=== PATIENT | female | born 1955 | race Two or more races ===

== ENCOUNTER 2024-01-19 15:26 | Emergency (ER) | payer MEDICARE, BC ==
[2024-01-19 16:00] VITALS: TEMP 97.6
--- NOTE | 2024-01-19 16:07 | ERPHSYRPT ---
- History of Present Illness Time Seen by Provider: 01/19/24 16:04 Source: patient Exam Limitations: no limitations Patient Subjective Stated Complaint: C/O intermittent nose bleeds since 01/15/24. Patient states she had a nose bleed (left nare only) on Thursday, 03/01, then again on 01/17/24 and then again today at around 2pm. Indicates she had a nose bleed from both nares on 01/18/24. Denies pain or trauma. Does state she noticed her B/P being a bit elevated during the bleeding. Went to see her family MD today, Dr. Agus Rowland who advised her to come to the ER. Triage Nursing Assessment: Patient ambulated back to ER without difficulties. No active bleeding at this time. She is alert and oriented. Skin tone normal. Physician History: 68-year-old female presents to our ER as a referral from her primary care doctor for blood work. Patient has been experiencing intermittent nosebleeds for the past 3 days. Patient's physician wants patient to obtain blood work to assess coagulation profile. No active bleeding at this time. No trauma no fever no dizziness no headache. No chest pain or shortness of breath. Patient otherwise feels well. Patient voices no other complaints or concerns at this time. Portions of this note were created with voice recognition technology. There may be grammatical, spelling, punctuation or sound alike errors Timing/Duration: day(s) (3 days) Severity: moderate Modifying Factors: Improves With: nothing Associated Symptoms: denies symptoms Allergies/Adverse Reactions: codeine Allergy (Verified 01/19/24 15:49) Sulfa (Sulfonamide Antibiotics) Allergy (Verified 01/19/24 15:49) Home Medications: Aspirin EC 81 mg [Ecotrin 81 mg] 81 mg PO DAILY 01/19/24 [History] Carvedilol [Coreg ] 6.25 mg PO DAILY 01/19/24 [History] Hx Influenza Vaccination/Date Given: No Travel Risk - International Travel Have you traveled outside of the country in past 3 weeks: No - Emerging Infectious Disease Are you exhibiting symptoms associated with any current EIDs: No - Review of Systems Constitutional: No Symptoms, No Fever, No Chills Eyes: No Symptoms Ears, Nose, & Throat: No Symptoms Respiratory: No Symptoms, No Cough, No Dyspnea Cardiac: No Symptoms, No Chest Pain, No Edema, No Syncope Abdominal/Gastrointestinal: No Symptoms, No Abdominal Pain, No Nausea, No Vomiting, No Diarrhea Genitourinary Symptoms: No Symptoms, No Dysuria Musculoskeletal: No Symptoms, No Back Pain, No Neck Pain Skin: No Symptoms, No Rash Neurological: No Symptoms, No Dizziness, No Focal Weakness, No Sensory Changes Psychological: No Symptoms Endocrine: No Symptoms Hematologic/Lymphatic: No Symptoms Immunological/Allergic: No Symptoms All Other Systems: Reviewed and Negative - Past Medical History Pertinent Past Medical History: Yes Cardiac History: Hypertension - Past Surgical History Past Surgical History: No Other Surgical History: wisdom teeth removal - Social History Smoking Status: Never smoker Exposure to second hand smoke: Yes Drug Use: none - Social Determinants of Health Will the patient participate in the screening: Yes Do you worry about a steady place to live?: No Do you have any problems with any of the following?: No known problems In the past 12 months,have you had to go without utilities?: No Transportation Issues: No Has anyone in your support network made you feel unsafe?: No Have you or anyone in your house had to go without enough: No - Nursing Vital Signs Nursing Vital Signs: Initial Vital Signs Blood Pressure 181/77 01/19/24 15:35 O2 Sat by Pulse Oximetry 98 01/19/24 15:35 Pain Scale Pain Intensity 0 - Physical Exam General Appearance: no apparent distress, alert Eye Exam: PERRL/EOMI, eyes nml inspection Ears, Nose, Throat Exam: normal ENT inspection, TMs normal, pharynx normal, moist mucous membranes Neck Exam: normal inspection, non-tender, supple, full range of motion Respiratory Exam: normal breath sounds, lungs clear, No respiratory distress Cardiovascular Exam: regular rate/rhythm, normal heart sounds, normal peripheral pulses Gastrointestinal/Abdomen Exam: soft, normal bowel sounds, No tenderness, No mass Back Exam: normal inspection, normal range of motion, No CVA tenderness, No vertebral tenderness Extremity Exam: normal inspection, normal range of motion, pelvis stable Neurologic Exam: alert, oriented x 3, cooperative, normal mood/affect, sensation nml, No motor deficits Skin Exam: normal color, warm, dry, No rash Lymphatic Exam: No adenopathy SpO2 Interpretation: normal SpO2: 99 O2 Delivery: Room Air - Course Nursing assessment & vital signs reviewed: Yes Ordered Tests: Active Orders 24 hr Category Date Time Status CBC W DIFF Stat Lab 01/19/24 16:26 Completed CMP Stat Lab 01/19/24 16:26 Completed PROTIME WITH INR Stat Lab 01/19/24 16:26 Completed PTT Stat Lab 01/19/24 16:26 Completed Lab/Rad Data: Laboratory Result Diagrams 01/19/24 16:26 01/19/24 16:26 Laboratory Results 01/19/24 01/19/24 01/19/24 Range/Units 16:26 16: 16:26 WBC 6.9 (3.98-10.04) x10^3/uL RBC 4.99 (3.93-5.22) x10^6/uL Hgb 15.0 (11.2-15.7) g/dL Hct 44.2 (34.1-44.9) % MCV 88.6 (79.4-94.8) fL MCH 30.1 (25.6-32.2) pg MCHC 33.9 (32.2-35.5) g/dL RDW 12.3 (11.7-14.4) % Plt Count 258 (182-369) x10^3/uL MPV 9.2 L (9.4-12.3) fL Gran % 60.6 (34.0-71.1) % Immature Gran % (Auto) 0.9 H (0.001-0.429) % Nucleat RBC Rel Count 0.0 (0.00-0.2) % Eos # (Auto) 0.30 (0.04-0.36) x10^3/uL Immature Gran # (Auto) 0.06 H (0.001-0.031) x10^3u/L Absolute Lymphs (auto) 1.77 (1.18-3.74) x10^3/uL Absolute Monos (auto) 0.53 (0.24-0.86) x10^3/uL Absolute Nucleated RBC 0.00 (0.00-0.012) x10^3u/L Lymphocytes % 25.6 (19.3-51.7) % Monocytes % 7.7 (4.7-12.5) % Eosinophils % 4.3 (0.7-5.8) % Basophils % 0.9 (0.1-1.2) % Absolute Granulocytes 4.20 (1.56-6.13) x10^3/uL Basophils # 0.06 (0.01-0.08) x10^3/uL PT 9.9 (9.4-12.5) SECONDS INR 0.90 (0.8-3.0) APTT 28.2 (25.1-36.5) SECONDS Sodium 140 (135-145) mmol/L Potassium 3.9 (3.5-5.1) mmol/L Chloride 109 H (98-107) mmol/L Carbon Dioxide 24 (22-30) mmol/L Anion Gap 11.5 (5-15) MEQ/L BUN 11 (7-17) mg/dL Creatinine 0.83 (0.52-1.04) mg/dL Estimated GFR 77.2 ML/MIN Glucose 128 H (74-106) mg/dL Calcium 8.5 (8.4-10.2) mg/dL Total Bilirubin 1.00 (0.2-1.3) mg/dL AST 29 (14-36) U/L ALT 29 (0-35) U/L Alkaline Phosphatase 113 (38-126) U/L Serum Total Protein 7.1 (6.3-8.2) g/dL Albumin 4.1 (3.5-5.0) g/dL - Progress Progress: improved Progress Note: 68-year-old female with intermittent bleeding. Patient presents to our ED as a referral from her primary care doctor for blood work to assess coagulation profile. Coagulation profile essentially normal. Patient observed no bleeding in our ED. Physical exam otherwise unremarkable. We will refer patient to ENT for further evaluation and treatment. at bedside voices no other complaints or concerns at this time. Portions of this note were created with voice recognition technology. There may be grammatical, spelling, punctuation or sound alike errors Complexity problem addressed is moderate acute complicated. No critical care time. Complexity data reviewed and analyzed is moderate. Test ordered test reviewed results analyzed and correlated clinically with history and physical exam. Risk of complication or risk of morbidity/mortality of patient management is low. Vital stable. Time spent to discharge patient is approximately 15 minutes. Plan of care established for shared decision making. No social determinants of health present in pain follow-up. Patient referred to ENT for follow-up. Patient referred to Dr. Peralta of ENT for follow-up Portions of this note were created with voice recognition technology. There may be grammatical, spelling, punctuation or sound alike errors 01/19/24 17:12 01/19/24 17:18 Counseled pt/family regarding: lab results, diagnosis, need for follow-up - Departure Departure Disposition: Home Clinical Impression: Epistaxis, Encounter for medical screening examination Condition: Stable Critical Care Time: No Referrals: OSWALDO ROWLAND [Primary Care Provider] - Follow up/PCP as directed Gege SAHRMA [NON-STAFF PHY W/O PRIVILEGES] - Follow up/PCP as directed Additional Instructions: Discharge/Care Plan KIMBERLYN SANCHES was seen on 01/19/24 in the Emergency Room. The patient was counseled regarding Diagnosis,Lab results, Imaging studies, need for follow up and when to return to the Emergency Room. Prescriptions given: Discharge Note I have spoken with the patient and/or caregivers. I have explained the patient's condition, diagnosis and treatment plan based on the information available to me at this time. I have answered the patient's and/or caregiver's questions and addressed any concerns. The patient and/or caregivers have as good understanding of the patient's diagnosis, condition and treatment plan as can be expected at this point. The vital signs have been stable. The patient's condition is stable and appropriate for discharge from the emergency department. The patient will pursue further outpatient evaluation with the primary care physician or other designated or consulting physician as outlined in the discharge instructions. The patient and/or caregivers are agreeable to this plan of care and follow-up instructions have been explained in detail. The patient and/or caregivers have received these instruction. The patient/and or caregivers are aware that any significant change in condition or worsening of symptoms should prompt an immediate return to this or the closest emergency department or call 911.
[2024-01-19 16:27] LABS: BASOPHIL % 0.9 % (0.1-1.2); Basophil (Absolute #) 0.06 x10^3/uL (0.01-0.08); Eosinophil % 4.3 % (0.7-5.8); Hematocrit 44.2 % (34.1-44.9); IMMATURE GRAN # 0.06 x10^3u/L (0.001-0.031); IMMATURE GRAN % 0.9 % (0.001-0.429); Lymphocyte (Absolute #) 1.77 x10^3/uL (1.18-3.74); Lymphocytes % 25.6 % (19.3-51.7); Mean Cell Volume 88.6 fL (79.4-94.8); Mean Corpuscular Hemoglobin 30.1 pg (25.6-32.2); Mean Corpuscular Hgb Concent. 33.9 g/dL (32.2-35.5); Mean Platelet Volume 9.2 fL (9.4-12.3); Monocyte (Absolute #) 0.53 x10^3/uL (0.24-0.86); Monocytes % 7.7 % (4.7-12.5); Neutrophil % 60.6 % (34.0-71.1); Platelet Count 258 x10^3/uL (182-369); Red Blood Count 4.99 x10^6/uL (3.93-5.22); Red Cell Distribution Width 12.3 % (11.7-14.4); White Blood Count 6.9 x10^3/uL (3.98-10.04)
[2024-01-19 16:42] LABS: INR 0.9 (0.8-3.0); PROTIME 9.9 SECONDS (9.4-12.5); PTT 28.2 SECONDS (25.1-36.5)
[2024-01-19 16:43] LABS: ALBUMIN 4.1 g/dL (3.5-5.0); ANION GAP 11.5 MEQ/L (5-15); Calcium 8.5 mg/dL (8.4-10.2); Creatinine 1 0.83 mg/dL (0.52-1.04); EST GLOMERULAR FILTRATION RATE 77.2 ML/MIN; Potassium 3.9 mmol/L (3.5-5.1); Total Protein 7.1 g/dL (6.3-8.2)
[2024-01-19 17:17] VITALS: O2SAT 99
[2024-01-19 17:23] VITALS: BP 170/75; PULSE 70; RESP 16
== END 2024-01-19 17:23 | disposition home or self-care (01) ==
LOC: ED 15:26
DX: Z03.89 Encounter for observation for other suspected diseases and conditions ruled out (principal); R04.0 Epistaxis; I10 Essential (primary) hypertension; Z79.899 Other long term (current) drug therapy
CPT/HCPCS: 36415; 80053; 85025; 85610; 85730; 99282